=== PATIENT | male | born 1995 | race Caucasian/White ===

== ENCOUNTER 2017-01-28 10:54 | Day surgery (SDC) | payer OTHER ==
[~2017-01-28] VITALS: Ht 180.3 cm; Wt 68.1 kg
[~2017-01-28 10:54] MED LIST: Lactated Ringer's 1,000 ML IV SCH
[2017-01-28] MEDS ORDERED: Dexamethasone 4 mg/mL Inj ONE (10:55)
[2017-01-28] MEDS ORDERED: Neostigmine 1 mg/mL 10 mL Inj ONE (10:55)
[2017-01-28] MEDS ORDERED: HYDROmorphone 1 mg/mL Inj ONE (10:55)
[2017-01-28] MEDS ORDERED: Ondansetron 2 mg/mL 2 mL Inj ONE (10:55)
[2017-01-28] MEDS ORDERED: Glycopyrrolate 0.2 MG/ML 1mL Inj ONE (10:55)
[2017-01-28] MEDS ORDERED: Propofol 10,000 mCg/mL 20 mL Inj ONE (10:55)
[2017-01-28] MEDS ORDERED: Rocuronium 10 mg/mL 5 mL Inj ONE (10:55)
[2017-01-28] MEDS ORDERED: fentaNYL-PF 50 mCg/mL 2 mL Inj ONE (10:55)
[2017-01-28] MEDS ORDERED: CeFAZolin Inj 2 gm / 50mL D5W IV ONE (11:19)
[2017-01-28 11:46] VITALS: BP 134/70; PULSE 82; RESP 18; O2SAT 100
[2017-01-28] MEDS ORDERED: Ketorolac 15 mg/mL Inj IVPUSH ONE (14:05)
[2017-01-28] MEDS ORDERED: HYDROcodone-APAP 5-325 mg Tablet PO PRN (14:05)
--- NOTE | 2017-01-28 14:07 | PCM.ORTHOP ---
Orthopedic Operative Report Date of Service: Jan 28, 2017 Pre Operative Diagnosis Right comminuted clavicle fracture Post Operative Diagnosis Same Procedure Right clavicle open reduction internal fixation Surgeon Surgeon: Kevin Doran MD Assistants: Treasure Christy Indication for Procedure Right clavicle fracture Findings Per Dictation Details of Procedure Indications: Edison is a 21-year-old male with a right comminuted clavicle fracture approximately 2 weeks ago after fall on outstretched hand. A clear explanation was given to the patient regarding the condition present, and the available conservative and surgical options. It was emphasized that the risks and benefits of surgery include but are not limited to infection, wound healing problems, damage to adjacent structures such as nerves, blood vessels and tendons, penitentiary disability and pain, arthritis, hypersensitivity, deep vein thrombosis, pulmonary embolism, broken hardware, failure of surgery, need for further procedures at time of surgery or later, cast related problems, loss of limb or life. The patient was given an explanation and the patient voiced understanding of what to expect after the procedure or surgery, the limitations in activities of daily living, the likely duration for post operative recovery and the instructions that are to be followed. At the end the patient was invited to seek clarification or ask further questions but there were none. The patient voiced understanding of the entire consultation. Description of Procedure: Patient taken to operating room and transferred to operating table in supine position. Time out was performed with both anesthesia and orthopaedics present to confirm details of case to be performed. After time out performed, patient placed under general anesthesia and endotracheal tube secured into place. Once endotracheal tube secured, the patient was placed into the beach-chair position. Patient position was again checked to ensure all bony prominences adequately padded. The right arm, shoulder and clavicle was prepped and draped in the usual sterile fashion to the level of the tourniquet. An incision was made over the fracture site. Dissection was sharply performed down to bone. The bovie was used to clear soft tissue from the fracture site. Care was taken to avoid any neurovascular structures. The fracture was reduced under direct visualization. There were multiple comminuted pieces. The cortical chips were keyed in place rather than removed as they had good periosteum attached. The plate was then applied and secured to bone with solid screw purchase. The wound was thoroughly irrigated by bulb irrigation. Hemostasis was obtained with electrocautery. The wound was closed in layers. The wound was cleaned and dressed with Xeroform, gauze, and tape. Sling was placed. The patient was extubated without difficulty and transferred to the PACU in stable condition. DIRECTOR OF HEAD START SURGEON: During the operation, the services of physician medical or surgical instrument maker were medically indicated and necessary to provide exposure of the operative site for the surgical procedure and to maintain the limb in a proper position to carry out the operation safely and efficiently. Without the qualified assistant womens volleyball coach being present, it would have extended the operative procedure and made the procedure technically more difficult to perform. Keep dressing clean dry and intact, do not remove dressing. Return to clinic in 10-14 days for follow-up with me for new steri-strips, obtain additional two- view x-rays of the affected clavicle. Continue sling for comfort and remove sling 3 times daily for elbow, wrist, hand ROM and shoulder pendulum exercises. Follow-up in 6 weeks postop with me with x-rays and may release to full activity once radiographically healing noted. Please keep the affected extremity elevated when possible. You may use ice as needed for comfort. Grafts, Implants: Implants-See Implant Record Complications There were no periprocedural complications identified. Condition Stable Anesthetic Administered: GA Catheters: None Output, Estimated Blood Loss: 20 Blood Admin during surgery: No Surgical Cast or Splint: Other Surgical Specimen Removed: No Specimen sent to Pathology: No copies to: Kevin Doran MD, Christopher L MD Jan 28, 2017 14:07
[2017-01-28] MEDS ORDERED: Lactated Ringer's 500 ML IV PRN (14:37)
--- NOTE | 2017-01-28 14:37 | PCM.HPANE ---
Patient Data Surgeon Admitting Provider: Attending Provider:Kevin Doran MD Primary Care Physician:Antonio Other Provider:Huy Bergman Anesthesia Reason for Visit Right Clavicle Fracture Ht/WT & BMI Height (Feet): 5 Height (Inches): 11 Weight (Kilograms): 71.66 Body Mass Index 22.00 Past Anesthesia History Anesthesia History: Denies:: Anesthesia Reactions, Fam Anesthesia Reaction, Fam Malignant Hypertherm, Malignant Hyperthermia Diabetes History Hx Diabetes?: No MRSA MRSA: No Medications No Active Prescriptions or Reported Meds History History of ENT Problems?: No HEENT History: Denies:: Abnormal Airway Cataracts Difficult Intubation Dysphagia Glaucoma Hearing Problem Sinus Problem TMJ Denture Type: None Teeth Condition: Within Normal Limits Hx of Heart Problems?: No Cardiovascular History: Denies:: AICD Abdominal Aortic Aneurism Atrial Fibrillation Cardiac Surgery Chest Pain Congestive Heart Failure Coronary Artery Disease Edema Heart Murmur Hypertension Irregular Heartbeat Pacemaker Peripheral Vascular Rheumatic Fever Thrombophlebitis Valvular Heart Disease Hx of Respiratory Problem?: No Respiratory History: Denies:: Asthma COPD Chest Surgery Cough Dyspnea Emphysema Hemoptysis Oxygen Administration Pneumonia Pulmonary Embolism Tuberculosis Use of C-PAP Machine Use of Inhalers / NEBS Hx Neurologic Problems?: No Hx of GI Problems?: No Hx of Problems?: No Male Hx: Denies:: Prostate Problems Scrotal Mass Testicular Surgery Skin History: Denies:: History Skin Disorders? Pressure Ulcers Hx Musculoskeletal Problems?: Yes Musculoskeletal History: Positive for:: Musculoskeletal Trauma (Rt clavcal hit gravel fell from long boarding) Denies:: Back Injury Degenerative Joint Fibromyalgia Joint Replacement Osteoarthritis Rheumatoid Arthritis Systemic Lupus Hx of Psycho/Social Problems?: No Hx Surgeries?: No Hx Any Other Health Problems?: No Other History: Denies:: Cancer Endocrine Disease Hospitalization Thyroid Disease History Blood Transfusions: Positive for:: Accept Blood Products? Denies:: Blood Transfusions Hx Diabetes: No Hx Alcohol Use: NoHx Substance Use: No Stop/Bang S-Snoring: Do You Snore Loudly: No T-Tired: feel tired, fatigued: Yes O-Obsered: Observed not breath: No P-Blood Pressure: treated: No B- Body Mass Index > 35 kg/m2: No A- Age over 50: No N- Neck Large Circumference: No G- Gender Male: Yes RON Total Score: 2 RON Risk Assessment: Low Risk, <3 Yes Risk Assessment Category Category 1A: Patient has history of documented sleep apnea, and HAS NOT received any narcotic, sedative or anesthesia administration during this stay. Category 1B: Patient has history of documented sleep apnea, and HAS received any narcotic , sedative or anesthesia administration during this stay Category 2: Patient has SUSPECTED Obstructive Sleep Apnea, and HAS received any narcotic , sedative or anesthesia administration during this stay. Category 3: Patient has SUSPECTED Obstructive Sleep Apnea and HAS NOT received narcotic, sedative or anesthesia administration during this stay. Category 4: Outpatient in Procedural Areas with known sleep apnea or who screen positive for High Risk via the STOP/BANG questionnaire. Exam Exam General Appearance: Alert HEENT/AIRWAY: MP 1, Neck Movement (from, 3 fb) Lungs: Clear to Auscultation Heart: Regular Rate/Rhythm Plan Impression Patient chart reviewed, patient interviewed and anesthestic plan with risks, benefits, and alternatives discussed, and informed consent obtained. NPO per Anesth. Guidelines: Yes ASA Physical Status: ASA1 Normal Healthy Anesthetic Plan: GA Bene/Risks/Altern/Consents: Yes HP Complete Prior to Induction: Yes Other Discussed GETA. All questions were answered and he agrees to proceed. Antwon Oglesby MD Jan 28, 2017 11:04
[2017-01-28] MEDS ORDERED: MetoCLOpramide 5 mg/mL 2 mL Inj IVPUSH PRN (14:40)
[2017-01-28] MEDS ORDERED: fentaNYL-PF 50 mCg/mL 2 mL Inj IVPUSH PRN (14:40)
[2017-01-28] MEDS ORDERED: Ondansetron 2 mg/mL 2 mL Inj IVPUSH PRN (14:40)
[2017-01-28] MEDS ORDERED: EPHEDrine Sulfate 50 mg/mL Inj IVPUSH PRN (14:40)
[2017-01-28] MEDS ORDERED: HYDROmorphone 1 mg/mL Inj IVPUSH PRN (14:40)
[2017-01-28] MEDS ORDERED: Dexamethasone 4 mg/mL Inj IVPUSH PRN (14:40)
[2017-01-28] MEDS ORDERED: Phenylephrine 10,000 mCg/mL Inj IVPUSH PRN (14:40)
[2017-01-28] MEDS: Lactated Ringer's 1,000 ML IV SCH ×2 (15:13→16:45)
[2017-01-28] MEDS ORDERED: Ropivacaine-PF 0.5% 30 mL Inj INFILTRATE ONE (15:14)
[2017-01-28 16:21] VITALS: BP 143/74; PULSE 72; RESP 12; O2SAT 100
[2017-01-28 16:24] VITALS: BP 150/72; PULSE 64; RESP 12; O2SAT 98
[2017-01-28] MEDS ORDERED: Acetaminophen IV 1,000 MG in IV Premix 1 EACH IV ONE (16:25)
[2017-01-28 16:27] VITALS: BP 144/75; PULSE 66; RESP 14; O2SAT 98
--- NOTE | 2017-01-28 16:28 | PCM.ANEP1 ---
Post Anesthesia PACU Phase 1 Assessment Vital Signs Vital Signs Date Time Temp Pulse Resp B/P Pulse Ox O2 Delivery O2 Flow Rate FiO2 01/28/17 16:24 64 12 150/72 98 Room Air 01/28/17 16:21 36.6 72 12 143/74 100 Simple Mask 6 01/28/17 11:46 36.8 82 18 134/70 100 Room Air Anesthetic Administered: GA Level of Alertness: Awake, talking TORRES's with Equal Strength: Yes Pain: No Nausea or Vomiting: No CV Function & Hydration Stable: Yes Airway Device: Oxygen Delivery: Simple Mask Lungs: Clear to Auscultation PACU Phase 2 Assessment Complications: No Follow up Care: N/A Patient Instructions Provided: N/A Antwon Oglesby MD Jan 28, 2017 16:28
[2017-01-28 16:42] VITALS: BP 147/74; PULSE 63; RESP 14; O2SAT 94
[2017-01-28] MEDS ORDERED: EPHEDrine Sulfate 50 mg/mL Inj IM ONE (17:05)
[2017-01-28] MEDS ORDERED: hydrOXYzine Inj 50 MG/1 mL SDV IM ONE (17:05)
[2017-01-28 17:55] VITALS: BP 159/78; PULSE 67; RESP 14; O2SAT 96
== END 2017-01-28 23:59 | disposition home or self-care (01) ==
LOC: SAS 10:54
PROVIDERS: ATTEND Orthopaedic Surgery
DX: S42.021A Displaced fracture of shaft of right clavicle, initial encounter for closed fracture (principal); W18.30XA Fall on same level, unspecified, initial encounter; Y93.9 Activity, unspecified; Y92.9 Unspecified place or not applicable; Y99.9 Unspecified external cause status
CPT/HCPCS: 23515; 76001; C1713; J0690; J1100; J1170; J2250; J2405; J2710; J2765; J2795; J3010; J3410; J7120